=== PATIENT | female | born 1955 | race American Indian/Alaskan Native ===

== ENCOUNTER 2016-11-27 05:55 | Day surgery (SDC) | payer OTHER ==
[2016-11-27 06:53] VITALS: BMI 26.5
--- NOTE | 2016-11-27 08:00 | CP.SDSHP ---
Same Day Surgery H & P - History Proposed Procedure: egd Pre-Op Diagnosis: epigastric pain. heartburn refractory to therapy - Previous Medical/Surgical History Cardiac: Hypertension, ASHD/CAD, Other (hyperlipidemia, H pylori gastritis, ) Endocrine/Metabolic: Diabetes Misc: Other (hemorrhoids, Diverticulosis) Previous Surgical History: SEVEN. x 1 - Allergies Allergies: Allergies aspirin Allergy (Verified 11/27/16 06:47) RASH Penicillins Allergy (Verified 11/27/16 06:47) RASH - Physical Exam Vital Signs: Vital Signs 11/27/16 06:54 Temperature 98.4 F Pulse Rate 74 Respiratory 19 Rate Blood Pressure 165/66 H O2 Sat by Pulse 99 Oximetry Mental Status: Alert & Oriented x3 Neuro: WNL Heart: WNL Lungs: WNL GI: WNL - Impression Impression: epigastric pain. heartburn Pt. Evaluated Today:Candidate for Anesthesia & Procedure: Yes - Date & Time Date: 11/27/16 Time: 08:00 Short Stay Discharge - Short Stay Discharge Admitting Diagnosis/Reason for Visit: EPIGASTRIC PAIN / HEARTBURN Disposition: HOME/ ROUTINE
[2016-11-27] MEDS ORDERED: Propofol 10 mg/ml Inj (20 ML) ONE (08:04)
[2016-11-27] MEDS ORDERED: Pantoprazole 40 mg EC Tab PO STA (08:12)
[2016-11-27 08:35] VITALS: O2SAT 100
[2016-11-27 09:36] VITALS: BP 133/73; PULSE 69; RESP 16; TEMP 97
== END 2016-11-27 09:29 | disposition home or self-care (01) ==
LOC: C.ENDO 05:55
PROVIDERS: ATTEND Internal Medicine Gastroenterology
DX: K29.60 Other gastritis without bleeding (principal); K44.9 Diaphragmatic hernia without obstruction or gangrene; K21.0 Gastro-esophageal reflux disease with esophagitis; E78.5 Hyperlipidemia, unspecified
CPT/HCPCS: 43239; 82948; 88305; 88312; 88313; 88342; J2001; J2704; J3010